=== PATIENT | male | born 1970 | race Caucasian/White ===

== ENCOUNTER 2020-01-29 15:50 | Inpatient (IN) | payer BC ==
[~2020-01-29] VITALS: Ht 198.1 cm; Wt 122.5 kg
[2020-01-29] VITALS (8 sets, daily range): BP systolic 104–138; BP diastolic 52–84
[2020-01-29] MEDS ORDERED: HEPARIN 25,000UTS/250ML PREMIX 250 ML IV PRN (16:30)
[2020-01-29] MEDS ORDERED: MORPHINE SULFATE 2 MG/ML VIAL. IV PRN (16:30)
[2020-01-29] MEDS ORDERED: DEXTROSE 50% 25 GM / 50ML DISP.SYRIN. IV PRN (16:30)
[2020-01-29] MEDS ORDERED: ACETAMINOPHEN 325 MG TABLET. PO PRN (16:30)
[2020-01-29] MEDS ORDERED: MAGNESIUM HYDROXIDE 2,400 MG/30 ML ORAL.SUSP. PO PRN (16:30)
[2020-01-29] MEDS ORDERED: BISACODYL 10 MG SUPP.RECT. PR PRN (16:30)
[2020-01-29] MEDS ORDERED: ONDANSETRON PF 4 MG/2 ML VIAL. IVP PRN (16:30)
[2020-01-29] MEDS ORDERED: HEPARIN for IV BOLUS 10,000 UNIT/10 ML VIAL. IV PRN (16:30)
--- NOTE | 2020-01-29 16:33 | PDOC1 ---
History and Physical Date of Admission Date of Admission DATE: 01/29/20 TIME: 16:33 Identification/Chief Complaint Chief Complaint Chest pain Source Source: Patient History of Present Illness History of Present Illness Mr Novak is a 49-year-old male w/ PMHX DM2 with neuropathy, cervical spinal stenosis and chronic lower back pain who presents to the emergency room at [facility] c/o substernal chest pain that is been intermittent since yesterday evening. He states he also has had intermittent shortness of breath and a dry hacking cough. He states it feels like a small child walking on his chest. He states that this all came on yesterday evening and he got very tired. He laid down and slept for 20 hours. When he woke up he still felt bad so he came to the emergency room. He is not had any known fevers. He is unsure if he has had any sick contacts. Notes his father had similar symptoms prior to an [place]. Labs with WBC 9.4, Hb 15.9, platelets 303, NA 134, K 4.1, BUN 10, Cr 1.1, Glucose 430, CRP 109, BNP 3083 Troponin of 25. CXR no acute findings EKG sinus tachy with TWI in I, AVL, and left anterior fascicular block noted, no ST segment changes Transferred to [facility] ICU, was tested for COVID 19 as well. His symptoms have not significantly improved since arrival, started on heparin GTT. Past Medical History Endocrine: Diabetes Past Surgical History Past Surgical History Carpal tunnel bilaterally, cubital tunnel bilaterally Family History Family History: Coronary Artery Disease Social History Smoke: # pack years (Chewing tobacco for 30 years) ALCOHOL: rare Drugs: None Allergies Allergies: Coded Allergies: No Known Drug Allergies (Unverified , 01/29/20) ROS General: YES: Fatigue, Malaise; No: Chills, Night Sweats, Appetite, Other PSYCHOLOGICAL ROS: YES: Anxiety; No: Behavioral Disorder, Concentration difficultie, Decreased libido, Depression, Disorientation, Hallucinations, Hostility, Irritablity, Memory difficulties, Mood Swings, Obsessive thoughts, Physical abuse, Sexual abuse, Sleep disturbances, Suicidal ideation, Other Eyes: No Blurry vision, No Decreased vision, No Double vision, No Dry eyes, No Excessive tearing, No Eye Pain, No Itchy Eyes, No Loss of vision, No Photophobia, No Scotomata, No Uses contacts, No Uses glasses, No Other HEENT: No: Heacaches, Visual Changes, Hearing change, Nasal congestion, Nasal discharge, Oral lesions, Sinus pain, Sore Throat, Epistaxis, Sneezing, Snoring, Tinnitus, Vertigo, Vocal changes, Other ALLERGY AND IMMUNOLOGY: No: Hives, Insect Bite Sensitivity, Itchy/Watery Eyes, Nasal Congestion, Post Nasal Drip, Seasonal Allergies, Other Hematological and Lymphatic: No: Bleeding Problems, Blood Clots, Blood Transfusions, Brusing, Night Sweats, Pallor, Swollen Lymph Nodes, Other ENDOCRINE: No: Breast Changes, Galactorrhea, Hair Pattern Changes, Hot Flashes, Malaise/lethargy, Mood Swings, Palpitations, Polydipsia/polyuria, Skin Changes, Temperature Intolerance, Unexpected Weight Changes, Other Breast: No New/Changing Breast Lumps, No Nipple changes, No Nipple discharge, No Other Respiratory: YES: Shortness of breath, SOB with excertion; No: Cough, Hemoptysis, Orthopnea, Pleuritic Pain, Sputum Changes, Stridor, Tachypnea, Wheezing, Other Cardiovascular: yes Chest Pain; No Palpitations, No Orthopnea, No Paroxysmal Noc. Dyspnea, No Edema, No Lt Headedness, No Other Gastrointestinal: Yes Nausea; No Vomiting, No Abdominal Pain, No Diarrhea, No Constipation, No Melena, No Hematochezia, No Other Genitourinary: No Dysuria, No Frequency, No Incontinence, No Hematuria, No Retention, No Discharge, No Urgency, No Pain, No Flank Pain, No Other, No , No , No , No , No , No , No Musculoskeletal: No Gait Disturbance, No Joint Pain, No Joint Stiffness, No Joint Swelling, No Muscle Pain, No Muscular Weakness, No Pain In:, No Swelling In:, No Other Neurological: No Behavorial Changes, No Bowel/Bladder ControlChng, No Confusion, No Dizziness, No Gait Disturbance, No Headaches, No Impaired Coord/balance, No Memory Loss, No Numbness/Tingling, No Seizures, No Speech Problems, No Tremors, No Visual Changes, No Weakness, No Other Skin: No Dry Skin, No Eczema, No Hair Changes, No Lumps, No Mole Changes, No Mottling, No Nail Changes, No Pruritus, No Rash, No Skin Lesion Changes, No Other, No Acne Physical Exam General: Alert, Oriented X3, Cooperative, moderate distress HEENT: Atraumatic, PERRLA, EOMI, Mucous membr. moist/pink Lungs: Clear to auscultation, Normal air movement Heart: S1S2, RRR, no thrills, no rubs, no gallops, no murmurs Abdomen: Normal bowel sounds, Soft, No tenderness, No hepatosplenomegaly, No masses Rectal Exam: not examined Extremities: No clubbing, No cyanosis, No edema, Normal pulses, No tenderness/swelling Skin: No rashes, No breakdown, No significant lesion Neuro: Normal gait, Normal speech, Strength at 5/5 X4 ext, Normal tone, Sensation intact, Cranial nerves 3-12 NL, Reflexes 2+ Psych/Mental Status: Mental status NL, Mood NL VTE Prophylaxis Ordered VTE Prophylaxis Devices: No VTE Pharmacological Prophylaxi: Yes Assessment/Plan Assessment/Plan A/P: NSTEMI (non-ST elevated myocardial infarction) - heparin GTT, trend troponins, NTG, ASA, consult cardiology. Likely CAD vs myocarditis Shortness of breath - likely cardiac related. no pulmonary history. F/u COVID 19 test results DM2 - will cont insulin regimen basal bolus plus Cervical spinal stenosis - stable, has outpatient plans for eventual surgery Chronic lower back pain - LESI planned in february - Cardiac diet PPX - Heparin GTT FULL CODE Dispo - ICU for NSTEMI CC time 37 minutes Justifications for Admission Other Justification DEE JACKSON MD Jan 29, 2020 16:33
[2020-01-29] MEDS ORDERED: INSU100V6 SQ (16:50)
[2020-01-29] MEDS ORDERED: GABA600T7 PO (16:50)
[2020-01-29] MEDS ORDERED: CYCL5TAB PO (16:50)
[2020-01-29] MEDS ORDERED: INSU100I13 SQ (16:50)
[2020-01-29] MEDS: INSULIN LISPRO 300 UNITS/3 ML VIAL. SQ SCH ×2 (17:00→18:03)
[2020-01-29] MEDS: DOCUSATE SODIUM 100 MG CAPSULE. PO SCH (20:55)
[2020-01-30] VITALS (16 sets, daily range): BP systolic 92–136; BP diastolic 61–86
[2020-01-30] MEDS: ZOLPIDEM 5 MG TABLET. PO PRN ×2 (00:41→20:38)
[2020-01-30] MEDS ORDERED: HEPARIN for IV BOLUS 10,000 UNIT/10 ML VIAL. IV PRN (01:45)
[2020-01-30] MEDS ORDERED: HEPARIN 25,000UTS/250ML PREMIX 250 ML IV PRN (02:00)
[2020-01-30 07:25] LABS: BASO % 0 % (0-3); EOS % 0 % (0-3); HEMATOCRIT 43.9 % (39.0-53.0); HEMOGLOBIN 14.9 g/dL (13.0-17.5); LYMPH # 1.9 x10^3/uL (1.0-4.8); LYMPH % 24 % (24-48); MEAN CORPUSCULAR HEMOGLOBIN 30 pg (25-35); MEAN CORPUSCULAR HGB CONC 34 g/dL (31-37); MEAN CORPUSCULAR VOLUME 87 fL (79-100); MONO # 0.6 x10^3/uL (0.0-1.1); MONO % 8 % (0-9); NEUT # 5.5 x10^3/uL (1.8-7.7); NEUT % 68 % (31-73); PLATELET COUNT 262 x10^3/uL (140-400); RED BLOOD COUNT 5.04 x10^6/uL (4.30-5.70); RED CELL DISTRIBUTION WIDTH 13.7 % (11.5-14.5); WHITE BLOOD COUNT 8.1 x10^3/uL (4.0-11.0)
[2020-01-30 07:44] LABS: CALCIUM 8.6 mg/dL (8.5-10.1); GFR 78.8; POTASSIUM 3.8 mmol/L (3.5-5.1)
[2020-01-30] MEDS: INSULIN LISPRO 300 UNITS/3 ML VIAL. SQ SCH ×3 (08:00→17:56)
[2020-01-30] MEDS ORDERED: IODIXANOL 320 MG/ML 100 ML VIAL. ONE ×3 (08:18→10:19)
[2020-01-30] MEDS ORDERED: LIDOCAINE 1% Multi-Dose 20 ML VIAL. ONE (08:18)
[2020-01-30] MEDS ORDERED: MIDAZOLAM HCL/PF 5 MG/5 ML VIAL. ONE (08:24)
[2020-01-30] MEDS ORDERED: fentaNYL PF VIAL 100 MCG/2 ML VIAL ONE (08:24)
[2020-01-30] MEDS ORDERED: ANTI-COAG MONITOR BY PHARMACY. MC PRN (08:30)
[2020-01-30] MEDS ORDERED: LIDOCAINE 1% Multi-Dose 20 ML VIAL. INJ ONE (08:45)
[2020-01-30] MEDS ORDERED: MIDAZOLAM HCL/PF 5 MG/5 ML VIAL. IV ONE (08:45)
[2020-01-30] MEDS ORDERED: fentaNYL PF VIAL 100 MCG/2 ML VIAL IV ONE (08:45)
[2020-01-30] MEDS ORDERED: IODIXANOL 320 MG/ML 100 ML VIAL. IART ONE (08:45)
--- NOTE | 2020-01-30 08:45 | PDOC ---
[employer] PROGRESS NOTE Date of Service DOS: DATE: 01/30/20 TIME: 08:44 Chief Complaint Chief Complaint A/P: NSTEMI (non-ST elevated myocardial infarction) - heparin GTT, trend troponins, NTG, ASA, consult cardiology. Likely CAD vs myocarditis Shortness of breath - likely cardiac related. no pulmonary history. F/u COVID 19 test results DM2 - will cont insulin regimen basal bolus plus Cervical spinal stenosis - stable, has outpatient plans for eventual surgery Chronic lower back pain - LESI planned in february FEN - Cardiac diet PPX - Heparin GTT FULL CODE Dispo - ICU for NSTEMI History of Present Illness History of Present Illness Mr Novak is a 49-year-old male w/ PMHX DM2 with neuropathy, cervical spinal stenosis and chronic lower back pain who presents to the emergency room at [facility] c/o substernal chest pain that is been intermittent since yesterday evening. He states he also has had intermittent shortness of breath and a dry hacking cough. He states it feels like a small child walking on his chest. He states that this all came on yesterday evening and he got very tired. He laid down and slept for 20 hours. When he woke up he still felt bad so he came to the emergency room. He is not had any known fevers. He is unsure if he has had any sick contacts. Notes his father had similar symptoms prior to an [place]. Labs with WBC 9.4, Hb 15.9, platelets 303, NA 134, K 4.1, BUN 10, Cr 1.1, Gluc ose 430, CRP 109, BNP 3083 Troponin of 25. CXR no acute findings EKG sinus tachy with TWI in I, AVL, and left anterior fascicular block noted, no ST segment changes Transferred to [facility] ICU, was tested for COVID 19 as well. His symptoms have not significantly improved since arrival, started on heparin GTT. Troponin still 16. to laboratory chief today. NPO. Vitals/I&O Vitals/I&O: Vital Signs Date Time Temp Pulse Resp B/P (MAP) Pulse Ox O2 Delivery O2 Flow Rate FiO2 01/30/20 07:00 95 16 109/75 (86) 98 Room Air 01/30/20 04:00 99.0 99.0 I & O 01/29/20 01/29/20 01/30/20 15:00 23:00 07:00 Intake Total 600 ml Output Total 200 ml 150 ml Balance 400 ml -150 ml Physical Exam General: Alert, Oriented X3, Cooperative, moderate distress Abdomen: Normal bowel sounds, Soft, No tenderness, No hepatosplenomegaly, No masses Extremities: No clubbing, No cyanosis, No edema, Normal pulses, No tenderness/swelling Skin: No rashes, No breakdown, No significant lesion Labs Labs: Laboratory Tests Test 01/29/20 17:42 01/29/20 17:50 01/29/20 19:17 01/30/20 00:30 Glucose (Fingerstick) 275 mg/dL (70-99) SARS-CoV-2 Antigen (Rapid) Negative (NEGATIVE) Troponin I Quantitative 18.699 ng/mL (0.000-0.055) 16.751 ng/mL (0.000-0.055) Heparin Anti-Xa Act, Unfractionated < 0.10 IU/mL (0.30-0.70) Test 01/30/20 07:10 White Blood Count 8.1 x10^3/uL (4.0-11.0) Red Blood Count 5.04 x10^6/uL (4.30-5.70) Hemoglobin 14.9 g/dL (13.0-17.5) Hematocrit 43.9 % (39.0-53.0) Mean Corpuscular Volume 87 fL (79-100) Mean Corpuscular Hemoglobin 30 pg (25-35) Mean Corpuscular Hemoglobin Concent 34 g/dL (31-37) Red Cell Distribution Width 13.7 % (11.5-14.5) Platelet Count 262 x10^3/uL (140-400) Neutrophils (%) (Auto) 68 % (31-73) Lymphocytes (%) (Auto) 24 % (24-48) Monocytes (%) (Auto) 8 % (0-9) Eosinophils (%) (Auto) 0 % (0-3) Basophils (%) (Auto) 0 % (0-3) Neutrophils # (Auto) 5.5 x10^3/uL (1.8-7.7) Lymphocytes # (Auto) 1.9 x10^3/uL (1.0-4.8) Monocytes # (Auto) 0.6 x10^3/uL (0.0-1.1) Eosinophils # (Auto) 0.0 x10^3/uL (0.0-0.7) Basophils # (Auto) 0.0 x10^3/uL (0.0-0.2) Heparin Anti-Xa Act, Unfractionated < 0.10 IU/mL (0.30-0.70) Sodium Level 134 mmol/L (136-145) Potassium Level 3.8 mmol/L (3.5-5.1) Chloride Level 101 mmol/L (98-107) Carbon Dioxide Level 24 mmol/L (21-32) Anion Gap 9 (6-14) Blood Urea Nitrogen 12 mg/dL (8-26) Creatinine 1.0 mg/dL (0.7-1.3) Estimated GFR (Cockcroft-Gault) 78.8 Glucose Level 303 mg/dL (70-99) Calcium Level 8.6 mg/dL (8.5-10.1) Comment Review of Relevant I have reviewed the following items eri (where applicable) has been applied. Medications: Current Medications Medications (Trade) Dose Ordered Sig/Chandrakant Route PRN Reason Start Time Stop Time Status Last Admin Dose Admin Zolpidem Tartrate (Ambien) 5 mg PRN QHS PRN PO INSOMNIA, MAY REPEAT IN 1HR 01/29/20 16:30 01/30/20 00:41 Docusate Sodium (Colace) 100 mg BID PO 01/29/20 21:00 01/29/20 20:55 Insulin Human Lispro (HumaLOG) 0-7 UNITS TIDWMEALS SQ 01/29/20 17:00 01/29/20 18:03 Heparin Sodium/ Dextrose 250 ml @ 0 mls/hr CONT PRN IV PER PROTOCOL 01/29/20 16:30 01/30/20 01:51 DC 01/29/20 18:04 Heparin Sodium (Porcine) (Heparin Sodium) 3,050 unit PRN Q6HRS PRN IV FOR UFH LEVEL LESS THAN 0.2 01/30/20 01:45 01/30/20 01:54 Justifications for Admission Other Justification DEE JACKSON MD Jan 30, 2020 08:45
[2020-01-30 08:53] LABS: ALBUMIN 2.6 g/dL (3.4-5.0); DIRECT BILIRUBIN 0.1 mg/dL (0.0-0.2); TOTAL BILIRUBIN 0.5 mg/dL (0.2-1.0)
[2020-01-30 08:54] LABS: CHOLESTEROL/HDL RATIO 4.4
--- NOTE | 2020-01-30 08:57 | PDOC2 ---
DAPHNE IVERSON COMPUTER AIDED DRAFTER 01/30/20 0857: CARDIAC CONSULT DATE OF CONSULT Date of Consult DATE: 01/30/20 TIME: 08:36 REASON FOR CONSULT Reason for Consult: NSTEMI REFERRING PHYSICIAN Referring Physician: Amrita SOURCE Source: Chart review, Patient HISTORY OF PRESENT ILLNESS HISTORY OF PRESENT ILLNESS This is a pleasant 49 yo male admitted for complains of chest pain. Reports he started having chest pressure yesterday with SOA and also feeling tired. No fever or cough. In the last week he has been fatigued. Also having thigh and chest cramps. No JEFFREY, jaw tightness arm heaviness and no indigestion or nausea. No recent falls injury or MVA. No hx of CAD, VTE or any arrhythmias. No HTN/HLP meds and no ASA but takes insulin for DM. He does have significant CAD family hx with his father and uncles and aunt from father's side. PAST MEDICAL HISTORY Cardiovascular: Hyperlipidemia Pulmonary: No pertinent hx CENTRAL NERVOUS SYSTEM: Other (No pertinent history) GI: No pertinent hx Heme/Onc: No pertinent hx Hepatobiliary: No pertinent hx Psych: No pertinent hx Musculoskeletal: low back pain (Lumbar HNP), Osteoarthritis Rheumatologic: No pertinent hx Infectious disease: No pertinent hx ENT: No pertinent hx Renal/: No pertinent hx Endocrine: Diabetes Dermatology: No pertinent hx PAST SURGICAL HISTORY Past Surgical History CTS bilateral repair, bilateral ulnar entrapment repair, right RTC repair x3 , 2 left knee arthroscopy, left lung PTX spontaneouis due to wt lifting, tonsillectomy and right hand debridement from infection FAMILY HISTORY Family History: Coronary Artery Disease SOCIAL HISTORY Social History 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 Smoke: No (chews tobacco) ALCOHOL: none Drugs: None Lives: with Family (spouse) CURRENT MEDICATIONS CURRENT MEDICATIONS Current Medications Medications (Trade) Dose Ordered Sig/Chandrakant Route PRN Reason Start Time Stop Time Status Last Admin Dose Admin Zolpidem Tartrate (Ambien) 5 mg PRN QHS PRN PO INSOMNIA, MAY REPEAT IN 1HR 01/29/20 16:30 01/30/20 00:41 Docusate Sodium (Colace) 100 mg BID PO 01/29/20 21:00 01/29/20 20:55 Insulin Human Lispro (HumaLOG) 0-7 UNITS TIDWMEALS SQ 01/29/20 17:00 01/29/20 18:03 Heparin Sodium/ Dextrose 250 ml @ 0 mls/hr CONT PRN IV PER PROTOCOL 01/29/20 16:30 01/30/20 01:51 DC 01/29/20 18:04 Heparin Sodium (Porcine) (Heparin Sodium) 3,050 unit PRN Q6HRS PRN IV FOR UFH LEVEL LESS THAN 0.2 01/30/20 01:45 01/30/20 01:54 ALLERGIES ALLERGIES: Coded Allergies: No Known Drug Allergies (Unverified , 01/29/20) ROS Review of System 14 point ROS evaluated with pertinent positives noted per HPI PHYSICAL EXAM General: Alert, Oriented X3, Cooperative, No acute distress HEENT: Atraumatic, Mucous membr. moist/pink Lungs: Clear to auscultation Heart: Regular rate (SR) Abdomen: Soft, No tenderness Extremities: No cyanosis, No edema Skin: No breakdown, No significant lesion Neuro: Normal speech, Sensation intact Psych/Mental Status: Mental status NL, Mood NL MUSCULOSKELETAL: Osteoarthritic changes both hands VITALS/I&O VITALS/I&O: Vital Signs Date Time Temp Pulse Resp B/P (MAP) Pulse Ox O2 Delivery O2 Flow Rate FiO2 01/30/20 07:00 95 16 109/75 (86) 98 Room Air 01/30/20 04:00 99.0 99.0 I & O 01/29/20 01/29/20 01/30/20 15:00 23:00 07:00 Intake Total 600 ml Output Total 200 ml 150 ml Balance 400 ml -150 ml LABS Lab: Laboratory Tests Test 01/29/20 17:42 01/29/20 17:50 01/29/20 19:17 01/30/20 00:30 Glucose (Fingerstick) 275 mg/dL (70-99) H SARS-CoV-2 Antigen (Rapid) Negative (NEGATIVE) Troponin I Quantitative 18.699 ng/mL (0.000-0.055) 16.751 ng/mL (0.000-0.055) Heparin Anti-Xa Act, Unfractionated < 0.10 IU/mL (0.30-0.70) L Test 01/30/20 07:10 White Blood Count 8.1 x10^3/uL (4.0-11.0) Red Blood Count 5.04 x10^6/uL (4.30-5.70) Hemoglobin 14.9 g/dL (13.0-17.5) Hematocrit 43.9 % (39.0-53.0) Mean Corpuscular Volume 87 fL (79-100) Mean Corpuscular Hemoglobin 30 pg (25-35) Mean Corpuscular Hemoglobin Concent 34 g/dL (31-37) Red Cell Distribution Width 13.7 % (11.5-14.5) Platelet Count 262 x10^3/uL (140-400) Neutrophils (%) (Auto) 68 % (31-73) Lymphocytes (%) (Auto) 24 % (24-48) Monocytes (%) (Auto) 8 % (0-9) Eosinophils (%) (Auto) 0 % (0-3) Basophils (%) (Auto) 0 % (0-3) Neutrophils # (Auto) 5.5 x10^3/uL (1.8-7.7) Lymphocytes # (Auto) 1.9 x10^3/uL (1.0-4.8) Monocytes # (Auto) 0.6 x10^3/uL (0.0-1.1) Eosinophils # (Auto) 0.0 x10^3/uL (0.0-0.7) Basophils # (Auto) 0.0 x10^3/uL (0.0-0.2) Heparin Anti-Xa Act, Unfractionated < 0.10 IU/mL (0.30-0.70) L Sodium Level 134 mmol/L (136-145) L Potassium Level 3.8 mmol/L (3.5-5.1) Chloride Level 101 mmol/L (98-107) Carbon Dioxide Level 24 mmol/L (21-32) Anion Gap 9 (6-14) Blood Urea Nitrogen 12 mg/dL (8-26) Creatinine 1.0 mg/dL (0.7-1.3) Estimated GFR (Cockcroft-Gault) 78.8 Glucose Level 303 mg/dL (70-99) H Calcium Level 8.6 mg/dL (8.5-10.1) Laboratory Tests 01/30/20 07:10 Laboratory Tests 01/30/20 07:10 ASSESSMENT/PLAN ASSESSMENT/PLAN 1. NSTEMI: ACS 2. DLP 3. DM2: insulin dependent 4. Obesity 5. Strong family hx of CAD 6. Chews tobacco Recommendations 1. LHC today and otential PCI 2. TTE, TSH, A1C and lipids 3. Secondary prevention measures post LHC 4. ASA, heparin drip ongoing. NEHEMIAH SUN MD 01/30/20 1403: CARDIAC CONSULT ASSESSMENT/PLAN ASSESSMENT/PLAN Patient seen and examined. Agree with PIZZA COOK's assessment and plan. Patient with non-STEMI. Rapid COVID test negative. Continue heparin infusion per protocol and proceed with cardiac catheterization and possible angioplasty today. Risks and benefits were explained and he is agreeable. Check 2D echo to assess LV systolic function. Consider Jardiance for diabetes. Thank you for your consultation. DAPHNE IVERSON APRN Jan 30, 2020 08:57 NEHEMIAH SUN MD Jan 30, 2020 14:03
[2020-01-30] MEDS: INSULIN GLARGINE SYRINGE. SQ SCH ×2 (09:00→20:43)
[2020-01-30] MEDS: DOCUSATE SODIUM 100 MG CAPSULE. PO SCH ×2 (09:00→20:38)
--- NOTE | 2020-01-30 09:20 | PDOC ---
MODERATE SEDATION ASSESSMENT RISKS/ALTERNATIVES Risks/Alternatives Risks and alternatives of this type of sedation and procedure discussed with: RISK/ALTERNATIVES: Patient H & P ON CHART H & P H & P on chart and reviewed for co-morbid conditions and appropriate labs. H&P ON CHART: Yes STATUS PREG STATUS ASSESSED: N/A MEDS/ALLERGIES REVIEWED Meds/Allergies Reviewed Medications and Allergies including time and route of recently administered narcotics and sedatives. MEDS/ALLERGIES REVIEWED: Yes ASA RATING ASA RATING: III AIRWAY ASSESSMENT Airway Assessment Airway patency, oral function limitations, presence of caps, crowns, dentures, partials, and ability to extend neck assessed. AIRWAY ASSESSMENT: Yes MALLAMPATI SCORE MALLAMPATI SCORE: II PRE-SEDATION ASSESSMENT PRE-SEDATION ASSESSMENT: Yes NEHEMIAH SUN MD Jan 30, 2020 09:20
[2020-01-30] MEDS ORDERED: BIVALIRUDIN 250 MG VIAL. IV ONE ×4 (09:35→10:15)
[2020-01-30] MEDS ORDERED: TICAGRELOR 90 MG TABLET. ONE (10:20)
[2020-01-30] MEDS ORDERED: TICAGRELOR 90 MG TABLET. PO ONE (10:30)
[2020-01-30] MEDS: IV 1/2 NORMAL SALINE 1,000 ML IV SCH ×2 (10:56→20:56)
[2020-01-30] MEDS ORDERED: ASPIRIN CHEWABLE 81 MG TABLET. PO ONE (11:00)
[2020-01-30] MEDS ORDERED: ACETAMINOPHEN 325 MG TABLET. PO PRN (11:00)
[2020-01-30] MEDS ORDERED: NITROGLYCERIN SUBLINGUAL 0.4 MG BOTTLE OF 25. SL PRN (11:00)
--- NOTE | 2020-01-30 11:34 | CARD ---
MR#: [id number] Date of Study: 01/30/2020 Ordering Physician: NEHEMIAH SUN, Referring Physician: NEHEMIAH SUN Tech: FREDRICK BREEN RTR APPROVED REPORT Technologist: FREDRICK BREEN RTR Nurse: Lian Gross R.N. Procedure(s) performed: 1. Left heart catheterization abd selective coronary angiography 2. Successful PCI/drug-eluting stents placement to left anterior descending and right coronary arter ies 3. Instant wave free ratio (IFR) measurement left circumflex artery stenosis MODERATE SEDATION TIME: 87 minutes FLUORO TIME: 21.5 MIN DOSE: 203 GYCM2 CONTRAST: 263CC VISI INDICATION The indication(s) include : non-STEMI . [facility] Clinical Frailty Scale [facility] Clinical Frailty Scale: Managing Well Heart Failure Heart Failure: No PROCEDURE NARRATIVE After explaining the risks, benefits and alternative options, informed consent was obtained from dimple ent. Patient was brought to the cardiac Hydrator and his right groin was prepped and draped in the u sual fashion. 10 cc of 2% lidocaine was infiltrated into the skin and subcutaneous tissues for local anesthesia. Arterial access was obtained in the right common femoral artery and a 6 [place] sheath w as inserted. 6 [place] JL4 and 6 [place] JR4 catheters were used to perform selective angiography of t he left and right coronary arteries. LVEDP and transaortic gradients were measured. Left ventriculo graphy was not performed due to contrast load used for intervention. Since patient was found to have angiographically borderline significant stenosis involving the proximal segment of the obtuse margin al branch of left circumflex artery, a decision was made to perform physiologic assessment using inst ant wave free ratio IIFR) measurement. The stenosis was crossed with a [employer] Verrata pressure wire and IFR measurement was made there was physiologically insignificant at 0.95. The following finding s were noted: FINDINGS 1. Hemodynamics: Left ventricular end-diastolic pressure 16 mmHg. No pullback gradient across the a ortic valve. 2. Coronary angiography: a. The left main coronary artery arose from the left sinus of Valsalva, gave rise to the left anteri or descending and left circumflex arteries and did not show any significant stenosis. b. The left anterior descending artery showed 80% stenosis in the proximal segment, a long 90% steno sis in the midsegment. There was severe diffuse disease noted in the distal/apical segment. The fir st diagonal branch showed chronic total occlusion proximally. c. The left circumflex artery showed 60% stenosis involving the proximal segment of an obtuse margin al branch. This was physiologically insignificant based on IFR measurement of 0.95. There is modera te to severe diffuse disease distally. d. The right coronary artery was a large and dominant vessel arising from the right sinus of Valsalv a that showed 70% stenosis in the proximal segment and 90% stenosis in the midsegment. INTERVENTION Patient had three-vessel coronary disease but he did not have any good distal targets for coronary ar pino bypass surgery. Hence we decided to intervene percutaneously. The left main coronary artery wa s engaged with a 6 [place] XB 3.5 guide catheter and the stenosis the proximal and mid segments of the left anterior descending artery were crossed with a 0.014 inch [employer] pro-water guidewire. This was predilated with a 3.0 x 15 mm Euphora balloon. The mid segment stenosis was treated with a 3.0 x 34 mm resolute [place] drug-eluting stent. The proximal segment stenosis was treated with a 3.5 x 22 mm re solute [place] drug-eluting stent with small area of overlap with the stent in the midsegment. Follow-u p angiography showed resolution of the stenosis to 0% with VIVIANA-3 distal flow. Subsequently, the right coronary artery was engaged with a 6 [place] JR4 guide catheter and the stenos is in the proximal and mid segments were crossed with a 0.014 inch [employer] pro-water guidewire. These were predilated with a 3.0 x 15 mm Euphora balloon. Initial attempts to advance stent across the pro ximal segment were unsuccessful due to tortuosity. A 6 [place] guide liner inner catheter was then ad vanced into the proximal segment for better backup support. Subsequently, the mid segment stenosis w as treated with a 3.0 x 18 mm resolute [place] in the proximal segment stenosis was treated with another 3.0 x 18 mm resolute [place] drug-eluting stents. Follow-up angiography showed resolution of both the lesions to 0% with VIVIANA-3 distal flow. Patient tolerated procedure well. Hemostasis was achieved us ing Angio-Seal. There were no immediate complications VIVIANA Flow VIVIANA Flow (Pre-Intervention): VIVIANA-3 VIVIANA Flow (Post-Intervention): VIVIANA-3 VIVIANA Flow VIVIANA Flow (Pre-Intervention): VIVIANA-3 VIVIANA Flow (Post-Intervention): VIVIANA-3 VIVIANA Flow VIVIANA Flow (Pre-Intervention): VIVIANA-3 VIVIANA Flow (Post-Intervention): VIVIANA-3 VIVIANA Flow VIVIANA Flow (Pre-Intervention): VIVIANA-3 VIVIANA Flow (Post-Intervention): VIVIANA-3 Conclusion 1. Three-vessel coronary artery disease with poor distal targets for coronary artery bypass surgery. 2. Successful PCI/drug-eluting stents placement to the left anterior descending and right coronary a rteries. 3. 60% left circumflex artery stenosis proven physiologically insignificant based on IFR measurement of 0.95. Recommendations 1. Aspirin 81 mg daily 2. Ticagrelor 90 mg twice daily 3. Cardiovascular risk factor modification 4. Cardiac rehabilitation referral Signed by : Nehemiah Sun, Electronically Approved : 01/30/2020 11:33:59
--- NOTE | 2020-01-30 13:26 | NUR ---
SW following. Discussed with RN, pt from home, room air, NPO, COVID-19 negative. RN advised no SW needs and anticipates discharge home possibly Sunday (02/01/2020). SW will continue to follow should any discharge needs arise.
--- NOTE | 2020-01-30 15:03 | CARD ---
MR#: [id number] Date of Study: 01/30/2020 Ordering Physician: DAPHNE IVERSON, Referring Physician: DAPHNE IVERSON Tech: Shalini Henning SINDHU APPROVED REPORT EXAM: Two-dimensional and M-mode echocardiogram with Doppler and color Doppler. Other Information Quality : Good INDICATION Non STEMI 2D DIMENSIONS RVDd3.0 (2.9-3.5cm)Left Atrium(2D)4.2 (1.6-4.0cm) IVSd1.7 (0.7-1.1cm)Aortic Root(2D)3.7 (2.0-3.7cm) LVDd4.9 (3.9-5.9cm)LVOT Diameter2.7 (1.8-2.4cm) PWd1.5 (0.7-1.1cm)LVDs3.5 (2.5-4.0cm) FS (%) 27.8 %SV61.0 ml LVEF(%)53.8 (>50%) Aortic Valve AoV Peak Alvin.87.2cm/sAoV VTI12.3cm AO Peak GR.3.0mmHgLVOT VTI 12.97cm AO Mean GR.2mmHg Mitral Valve MV E Wqudzsci32.0cm/sMV DECEL NEOV95sd MV A Ufovpbun02.5cm/sE/A Ratio0.4 TDI Lateral E' P. V3.80cm/sMedial E' P. V4.12cm/s E/Lateral E'8.9E/Medial E'8.3 Tricuspid Valve TR P. Pzuscjmf041ti/sRAP FULGLHZC9ghGi TR Peak Gr.19cxUjQRJQ91lwEx LEFT VENTRICLE The left ventricle is normal size. There is mild to moderate concentric left ventricular hypertrophy. Basal inferior wall hypokinesis. The Ejection Fraction is 45-50%. Transmitral Doppler flow pattern i s Grade I-abnormal relaxation pattern. RIGHT VENTRICLE The right ventricle is normal size. The right ventricular systolic function is normal. ATRIA The left atrium is mildly dilated. The right atrium size is normal. The interatrial septum is intact with no evidence for an atrial septal defect or patent foramen ovale as noted on 2-D or Doppler imagi ng. AORTIC VALVE The aortic valve is normal in structure and function. Doppler and Color Flow revealed no significant aortic regurgitation. There is no significant aortic valvular stenosis. MITRAL VALVE The mitral valve is normal in structure and function. There is no evidence of mitral valve prolapse. There is no mitral valve stenosis. Doppler and Color-flow revealed trace mitral regurgitation. TRICUSPID VALVE The tricuspid valve is normal in structure and function. Doppler and Color Flow revealed trace tricus pid regurgitation. The PA pressure was estimated at 22 mmHg. There is no tricuspid valve stenosis. PULMONIC VALVE The pulmonic valve is not well visualized. Doppler and Color Flow revealed no pulmonic valvular regur gitation. There is no pulmonic valvular stenosis. GREAT VESSELS The aortic root is normal in size. The ascending aorta is mildly dilated at 3.8 cm. The IVC was not v isualized. PERICARDIAL EFFUSION There is no evidence of significant pericardial effusion. Critical Notification Critical Value: No <Conclusion> Basal inferior wall hypokinesis. The Ejection Fraction is 45-50%. Transmitral Doppler flow pattern is Grade I-abnormal relaxation pattern. Trace mitral regurgitation. Trace tricuspid regurgitation. The PA pressure was estimated at 22 mmHg. There is no evidence of significant pericardial effusion. Signed by : Marcelo Ovalle, Electronically Approved : 01/30/2020 15:03:06
[2020-01-30] MEDS: METOPROLOL TART IMMED RELEASE 25 MG TABLET. PO SCH (20:38)
[2020-01-30] MEDS ORDERED: ATORVASTATIN CALCIUM 20 MG TABLET PO SCH (21:00)
[2020-01-31] VITALS: BP 118/77
[2020-01-31 03:09] LABS: HEMOGLOBIN A1C 13.3 % (4.8-5.6)
[2020-01-31 04:00] VITALS: BP 107/65
[2020-01-31] MEDS: IV 1/2 NORMAL SALINE 1,000 ML IV SCH (06:56)
--- NOTE | 2020-01-31 07:56 | PDOC ---
[employer] PROGRESS NOTE Date of Service DOS: DATE: 01/31/20 TIME: 07:54 Chief Complaint Chief Complaint A/P: NSTEMI (non-ST elevated myocardial infarction) - s/p cardiac cath 3 vessel CAD - PCI/drug-eluting stents placement to the left anterior descending and right coronary arteries. Shortness of breath - likely cardiac related DM2 - will cont insulin regimen basal bolus plus Cervical spinal stenosis - stable, has outpatient plans for eventual surgery Chronic lower back pain - LESI planned in february - Cardiac diet PPX - Heparin GTT FULL CODE Dispo - ICU for NSTEMI History of Present Illness History of Present Illness Mr Novak is a 49-year-old male w/ PMHX DM2 with neuropathy, cervical spinal stenosis and chronic lower back pain who presents to the emergency room at [facility] c/o substernal chest pain that is been intermittent since yesterday evening. He states he also has had intermittent shortness of breath and a dry hacking cough. He states it feels like a small child walking on his chest. He states that this all came on yesterday evening and he got very tired. He laid down and slept for 20 hours. When he woke up he still felt bad so he came to the emergency room. He is not had any known fevers. He is unsure if he has had any sick contacts. Notes his father had similar symptoms prior to an [place]. Labs with WBC 9.4, Hb 15.9, platelets 303, NA 134, K 4.1, BUN 10, Cr 1.1, Glucose 430, CRP 109, BNP 3083 Troponin of 25. CXR no acute findings EKG sinus tachy with TWI in I, AVL, and left anterior fascicular block noted, no ST segment changes Transferred to [facility] ICU, was tested for COVID 19 as well. 01/29: To cardiac cath: 1. Three-vessel coronary artery disease with poor distal targets for coronary artery bypass surgery. 2. Successful PCI/drug-eluting stents placement to the left anterior descending and right coronary arteries. 3. 60% left circumflex artery stenosis proven physiologically insignificant based on IFR measurement of 0.95. Echo with basal hypokinesis and EF 45-50% Feeling improved no shortness of breath or chest pain. Discussed need for intense diabetic control, sensation of smokeless tobacco. Diet and exercise emphasized. Discussed with bedside as well. Vitals/I&O Vitals/I&O: Vital Signs Date Time Temp Pulse Resp B/P (MAP) Pulse Ox O2 Delivery O2 Flow Rate FiO2 01/31/20 04:00 99.4 86 16 107/65 (79) 95 Room Air 99.4 01/31/20 00:00 I & O 01/30/20 01/30/20 01/31/20 14:59 22:59 06:59 Intake Total 100 ml 1200 ml Balance 100 ml 1200 ml Physical Exam General: Alert, Oriented X3, Cooperative, No acute distress Heart: Regular rate (SR) Abdomen: Soft, No tenderness Extremities: No cyanosis, No edema Skin: No breakdown, No significant lesion Labs Labs: Laboratory Tests Test 01/30/20 17:32 Glucose (Fingerstick) 261 mg/dL (70-99) Comment Review of Relevant I have reviewed the following items eri (where applicable) has been applied. Medications: Current Medications Medications (Trade) Dose Ordered Sig/Chandrakant Route PRN Reason Start Time Stop Time Status Last Admin Dose Admin Heparin Sodium/ Sodium Chloride (HEPARIN for ARTERIAL LINE FLUSH) 1,000 unit 1X ONCE IART 01/30/20 08:45 01/30/20 08:46 DC 01/30/20 08:45 Midazolam HCl (Versed) 5 mg 1X ONCE IV 01/30/20 08:45 01/30/20 08:46 DC 01/30/20 08:45 Fentanyl Citrate (Fentanyl 2ml Vial) 100 mcg 1X ONCE IV 01/30/20 08:45 01/30/20 08:46 DC 01/30/20 08:45 Iodixanol (Visipaque 320) 100 ml 1X ONCE IART 01/30/20 08:45 01/30/20 08:46 DC 01/30/20 08:45 Lidocaine HCl (Lidocaine 1% 20ml Vial) 20 ml 1X ONCE INJ 01/30/20 08:45 01/30/20 08:46 DC 01/30/20 08:45 Insulin Glargine (Lantus Syringe) 20 unit BID SQ 01/30/20 09:00 01/30/20 20:43 Bivalirudin (Angiomax) 250 mg 1X ONCE IV 01/30/20 10:15 01/30/20 10:18 DC 9/18/20 10:15 Bivalirudin (Angiomax) 250 mg 1X ONCE IV 01/30/20 10:15 01/30/20 10:18 DC 01/30/20 10:15 Ticagrelor (Brilinta) 180 mg 1X ONCE PO 01/30/20 10:30 01/30/20 10:31 DC 01/30/20 10:30 Aspirin (Aspirin Chewable) 81 mg 1X ONCE PO 01/30/20 11:00 01/30/20 11:01 DC 01/30/20 10:49 Metoprolol Tartrate (Lopressor) 12.5 mg BID PO 01/30/20 21:00 01/30/20 20:38 Atorvastatin Calcium (Lipitor) 40 mg QHS PO 01/30/20 21:00 01/30/20 20:38 Justifications for Admission Other Justification DEE JACKSON MD Jan 31, 2020 07:56
[2020-01-31 08:00] VITALS: BP 119/80
[2020-01-31] MEDS ORDERED: ASPIRIN ENTERIC COATED 81 MG TABLET.DR. PO SCH (08:00)
--- NOTE | 2020-01-31 08:15 | EKG ---
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
[2020-01-31] MEDS: DOCUSATE SODIUM 100 MG CAPSULE. PO SCH (08:20)
[2020-01-31] MEDS: METOPROLOL TART IMMED RELEASE 25 MG TABLET. PO SCH (08:21)
[2020-01-31] MEDS: INSULIN GLARGINE SYRINGE. SQ SCH (08:28)
[2020-01-31] MEDS: INSULIN LISPRO 300 UNITS/3 ML VIAL. SQ SCH ×2 (08:29→12:00)
[2020-01-31] MEDS ORDERED: TICAGRELOR 90 MG TABLET. PO SCH (09:00)
[2020-01-31 10:00] VITALS: BP 113/75
--- NOTE | 2020-01-31 10:33 | PDOC ---
PROGRESS NOTES Date of Service: DATE: 01/31/20 TIME: 10:33 Subjective Subjective Patient denied any chest pain or shortness of breath Objective Objective Vital Signs Date Time Temp Pulse Resp B/P (MAP) Pulse Ox O2 Delivery O2 Flow Rate FiO2 01/31/20 08:21 82 119/84 01/31/20 04:00 99.4 16 95 Room Air 99.4 01/31/20 00:00 Intake and Output 01/31/20 07:00 Intake Total 1300 ml Balance 1300 ml Intake Oral 1300 ml # Voids 5 Physical Exam Abdomen: Soft, No tenderness Heart: Regular rate (SR) Extremities: No cyanosis, No edema General: Alert, Oriented X3, Cooperative, No acute distress HEENT: Atraumatic, Mucous membr. moist/pink Lungs: Clear to auscultation MUSCULOSKELETAL: Osteoarthritic changes both hands Neuro: Normal speech, Sensation intact Psych/Mental Status: Mental status NL, Mood NL Skin: No breakdown, No significant lesion Assessment Assessment 1. NSTEMI/CAD: Cardiac catheterization showed three-vessel coronary disease. P atient underwent successful PCI/GABBI to LAD and RCA yesterday. Telemetry did not show any significant arrhythmias. He is currently stable and chest pain-free. Continue dual antiplatelet therapy. Will refer patient for cardiac rehabilitation. Follow-up with our office in 1 month. 2. DLP: Continue statin therapy 3. DM2: insulin dependent: Treat per primary team 4. Mild ischemic cardiomyopathy, EF 45 to 50%. Clinically well compensated. Comment Review of Relevant I have reviewed the following items eri (where applicable) has been applied. Labs Laboratory Tests Test 01/30/20 17:32 01/31/20 08:25 Glucose (Fingerstick) 261 mg/dL (70-99) 210 mg/dL (70-99) Medications Current Medications Acetaminophen (Tylenol) 650 mg PRN Q6HRS PRN PO MILD PAIN / TEMP > 100.3'F; Start 01/30/20 at 11:00 Aspirin (Aspirin Chewable) 81 mg 1X ONCE PO Last administered on 01/30/20at 10:49; Start 01/30/20 at 11:00; Stop 01/30/20 at 11:01; Status DC Aspirin (Ecotrin) 81 mg DAILYWBKFT PO Last administered on 01/31/20at 08:22; Start 01/31/20 at 08:00 Atorvastatin Calcium (Lipitor) 40 mg QHS PO Last administered on 01/30/20at 20:38; Start 01/30/20 at 21:00 Metoprolol Tartrate (Lopressor) 12.5 mg BID PO Last administered on 01/31/20at 08:21; Start 01/30/20 at 21:00 Nitroglycerin (Nitrostat) 0.4 mg PRN Q5MIN PRN SL CHEST PAIN; Start 01/30/20 at 11:00 Sodium Chloride 1,000 ml @ 100 mls/hr Q10H IV ; Start 01/30/20 at 10:56 Ticagrelor (Brilinta) 90 mg BID PO Last administered on 01/31/20at 08:22; Start 01/31/20 at 09:00 Vitals/I & O Vital Sign - Last 24 Hours 01/30/20 01/30/20 01/30/20 01/30/20 10:50 11:00 12:00 12:00 Temp 98.6 98.6 Pulse 87 95 92 Resp 18 16 16 B/P (MAP) 122/75 (91) 129/85 (100) Pulse Ox 97 98 98 O2 Delivery Nasal Cannula Room Air Room Air Room Air O2 Flow Rate 2.0 01/30/20 01/30/20 01/30/20 01/30/20 13:00 14:00 15:00 16:00 Pulse 86 88 90 Resp 16 16 16 B/P (MAP) 92/61 (71) 117/77 (90) 119/83 (95) Pulse Ox 97 97 97 O2 Delivery Room Air Room Air Room Air Room Air 01/30/20 01/30/20 01/31/20 01/31/20 20:00 20:38 00:00 04:00 Temp 99.3 99.1 99.4 99.3 99.1 99.4 Pulse 91 91 91 86 Resp 16 16 16 B/P (MAP) 132/78 (96) 132/78 118/77 (91) 107/65 (79) Pulse Ox 96 95 95 O2 Delivery Room Air Room Air Room Air O2 Flow Rate 01/31/20 08:21 Pulse 82 B/P (MAP) 119/84 Intake and Output 01/30/20 01/30/20 01/31/20 15:00 23:00 07:00 Intake Total 100 ml 1200 ml Balance 100 ml 1200 ml NEHEMIAH SUN MD Jan 31, 2020 10:33
[2020-01-31] MEDS ORDERED: ATOR20TA58 PO (11:21)
[2020-01-31] MEDS ORDERED: METF10007 PO (11:21)
[2020-01-31] MEDS ORDERED: LINA5TAB PO (11:21)
[2020-01-31] MEDS ORDERED: METO25TA4 PO (11:21)
[2020-01-31] MEDS ORDERED: EMPA25TA PO (11:21)
[2020-01-31] MEDS ORDERED: TICA90TA PO (11:21)
[2020-01-31] MEDS ORDERED: ASPI-886 PO (11:21)
--- NOTE | 2020-01-31 11:25 | PDOC3 ---
Discharge Summary Visit Information Date of Admission: Jan 29, 2020 Date of Discharge: Jan 31, 2020 Admitting Diagnosis: NSTEMI Final Diagnosis 3 vessel CAD Brief Hospital Course Allergies Allergies Coded Allergies Type Severity Reaction Last Updated Verified No Known Drug Allergies 01/29/20 No Vital Signs Vital Signs Date Time Temp Pulse Resp B/P (MAP) Pulse Ox O2 Delivery O2 Flow Rate FiO2 01/31/20 10:00 98.7 86 18 113/75 (88) 98 Room Air 98.7 01/31/20 00:00 Lab Results Laboratory Tests Test 01/29/20 17:42 01/29/20 17:50 01/29/20 18:15 01/29/20 19:17 Glucose (Fingerstick) 275 mg/dL (70-99) SARS-CoV-2 Antigen (Rapid) Negative (NEGATIVE) Coronavirus (PCR) Not detected (Not Detected) Troponin I Quantitative 18.699 ng/mL (0.000-0.055) Test 01/30/20 00:30 01/30/20 07:10 01/30/20 17:32 01/31/20 08:25 Heparin Anti-Xa Act, Unfractionated < 0.10 IU/mL (0.30-0.70) < 0.10 IU/mL (0.30-0.70) Troponin I Quantitative 16.751 ng/mL (0.000-0.055) White Blood Count 8.1 x10^3/uL (4.0-11.0) Red Blood Count 5.04 x10^6/uL (4.30-5.70) Hemoglobin 14.9 g/dL (13.0-17.5) Hematocrit 43.9 % (39.0-53.0) Mean Corpuscular Volume 87 fL (79-100) Mean Corpuscular Hemoglobin 30 pg (25-35) Mean Corpuscular Hemoglobin Concent 34 g/dL (31-37) Red Cell Distribution Width 13.7 % (11.5-14.5) Platelet Count 262 x10^3/uL (140-400) Neutrophils (%) (Auto) 68 % (31-73) Lymphocytes (%) (Auto) 24 % (24-48) Monocytes (%) (Auto) 8 % (0-9) Eosinophils (%) (Auto) 0 % (0-3) Basophils (%) (Auto) 0 % (0-3) Neutrophils # (Auto) 5.5 x10^3/uL (1.8-7.7) Lymphocytes # (Auto) 1.9 x10^3/uL (1.0-4.8) Monocytes # (Auto) 0.6 x10^3/uL (0.0-1.1) Eosinophils # (Auto) 0.0 x10^3/uL (0.0-0.7) Basophils # (Auto) 0.0 x10^3/uL (0.0-0.2) Sodium Level 134 mmol/L (136-145) Potassium Level 3.8 mmol/L (3.5-5.1) Chloride Level 101 mmol/L (98-107) Carbon Dioxide Level 24 mmol/L (21-32) Anion Gap 9 (6-14) Blood Urea Nitrogen 12 mg/dL (8-26) Creatinine 1.0 mg/dL (0.7-1.3) Estimated GFR (Cockcroft-Gault) 78.8 Glucose Level 303 mg/dL (70-99) Hemoglobin A1c 13.3 % (4.8-5.6) Calcium Level 8.6 mg/dL (8.5-10.1) Total Bilirubin 0.5 mg/dL (0.2-1.0) Direct Bilirubin 0.1 mg/dL (0.0-0.2) Aspartate Amino Transf (AST/SGOT) 48 U/L (15-37) Alanine Aminotransferase (ALT/SGPT) 31 U/L (16-63) Alkaline Phosphatase 72 U/L (46-116) Total Protein 6.0 g/dL (6.4-8.2) Albumin 2.6 g/dL (3.4-5.0) Triglycerides Level 123 mg/dL (0-150) Cholesterol Level 195 mg/dL (0-200) LDL Cholesterol, Calculated 126 mg/dL (0-100) VLDL Cholesterol, Calculated 25 mg/dL (0-40) Non-HDL Cholesterol Calculated 151 mg/dL (0-129) HDL Cholesterol 44 mg/dL (40-60) Cholesterol/HDL Ratio 4.4 Glucose (Fingerstick) 261 mg/dL (70-99) 210 mg/dL (70-99) Laboratory Tests Test 01/30/20 17:32 01/31/20 08:25 Glucose (Fingerstick) 261 mg/dL (70-99) 210 mg/dL (70-99) Brief Hospital Course Mr Novak is a 49-year-old male w/ PMHX DM2 with neuropathy, cervical spinal stenosis and chronic lower back pain who presents to the emergency room at [facility] c/o substernal chest pain that is been intermittent since yesterday evening. He states he also has had intermittent shortness of breath and a dry hacking cough. He states it feels like a small child walking on his chest. He states that this all came on yesterday evening and he got very tired. He laid down and slept for 20 hours. When he woke up he still felt bad so he came to the emergency room. He is not had any known fevers. He is unsure if he has had any sick contacts. Notes his father had similar symptoms prior to an [place]. Labs with WBC 9.4, Hb 15.9, platelets 303, NA 134, K 4.1, BUN 10, Cr 1.1, Glucose 430, CRP 109, BNP 3083 Troponin of 25. CXR no acute findings EKG sinus tachy with TWI in I, AVL, and left anterior fascicular block noted, no ST segment changes Transferred to [facility] ICU, was tested for COVID 19 as well. 01/29: To cardiac cath: 1. Three-vessel coronary artery disease with poor distal targets for coronary artery bypass surgery. 2. Successful PCI/drug-eluting stents placement to the left anterior descending and right coronary arteries. 3. 60% left circumflex artery stenosis proven physiologically insignificant based on IFR measurement of 0.95. Echo with basal hypokinesis and EF 45-50% Feeling improved no shortness of breath or chest pain. Discussed need for inten se diabetic control, sensation of smokeless tobacco. Diet and exercise emphasized. Discussed with bedside as well. Consults: Cardiology Problem list: NSTEMI (non-ST elevated myocardial infarction) - s/p cardiac cath 3 vessel CAD - PCI/drug-eluting stents placement to the left anterior descending and right coronary arteries. Shortness of breath - likely cardiac related DM2 - will cont insulin regimen basal bolus plus Cervical spinal stenosis - stable, has outpatient plans for eventual surgery Chronic lower back pain - LESI planned in february Greater than 30 minutes spent on d/c home with cardiac rehab. no heavy lifting for 14 days. Discharge Information Condition at Discharge: Improved Follow Up: Weeks (1) Disposition/Orders: D/C to Home Scheduled Aspirin (Aspirin Ec) 81 Mg Tablet.dr, 81 MG PO DAILYWBKFT for CAD for 90 Days, #90 Ref 3 Prescribed by: DEE JACKSON MD on 01/31/20 1121 Atorvastatin Calcium (Atorvastatin Calcium) 20 Mg Tablet, 40 MG PO QHS for CAD for 90 Days, #180 Ref 3 Prescribed by: DEE JACKSON MD on 01/31/20 1121 Empagliflozin (Jardiance) 25 Mg Tablet, 25 MG PO DAILY for DM2 for 90 Days, #90 Ref 3 Prescribed by: DEE JACKSON MD on 01/31/20 1121 Gabapentin (Gabapentin) 600 Mg Tablet, 600 MG PO TID for NEUROGENIC PAIN, (Reported) Entered as Reported by: SHAMAR MCFADDEN on 01/29/201649 Last Action: New Order on 01/29/201649 by SHAMAR MCFADDEN Insulin Glargine,Hum.rec.anlog (Lantus Solostar) 100 Unit/1 Ml Insuln.pen, 50 UNIT SQ BID for DM, #15 Ref 3 (Reported) Entered as Reported by: SHAMAR MCFADDEN on 01/29/201649 Last Action: Converted on 01/30/20 08 by DEE JACKSON MD Insulin Lispro (Humalog) 100 Unit/1 Ml Vial, 50 UNIT SQ TIDAC for DM, (Reported) Entered as Reported by: SHAMAR MCFADDEN on 01/29/201649 Last Action: New Order on 01/29/201649 by SHAMAR MCFADDEN Linagliptin (Tradjenta) 5 Mg Tablet, 5 MG PO DAILY for TYPE 2 DIABETES for 90 Days, #90 Ref 3 Prescribed by: DEE JACKSON MD on 01/31/20 1121 Metformin Hcl (Metformin Hcl) 1,000 Mg Tablet, 1,000 MG PO BIDWMEALS for DM2 for 90 Days, #180 Ref 3 Prescribed by: DEE JACKSON MD on 01/31/20 1121 Metoprolol Tartrate (Metoprolol Tartrate) 25 Mg Tablet, 12.5 MG PO BID for CAD for 90 Days, #90 Ref 3 Prescribed by: DEE JACKSON MD on 01/31/20 1121 Ticagrelor (Brilinta) 90 Mg Tablet, 90 MG PO BID for CAD for 90 Days, #180 Ref 3 Prescribed by: DEE JACKSON MD on 01/31/20 1121 Scheduled PRN Cyclobenzaprine Hcl (Cyclobenzaprine Hcl) 5 Mg Tablet, 1 TAB PO PRN PRN for MUSCLE SPASMS, #30 (Reported) Entered as Reported by: SHAMAR MCFADDEN on 01/29/201649 Last Action: New Order on 01/29/201649 by SHAMAR MCFADDEN Justicifation of Admission Dx: Justifications for Admission: Justification of Admission Dx: Yes Angina: Unstable Variant DEE JACSKON MD Jan 31, 2020 11:25
--- NOTE | 2020-01-31 12:12 | NUR ---
IV accidental removal from patient, intact, and bandage applied. This Rn gave education on diet, exercise, and discharge directions on medications and lifestyle techniques for improving quality of life and prevention methods. Script for work was given to patient and spouse. This Rn escorted pt and spouse to main entrance to private vehicle. Fair tolerance ambulating. All belongings with patient self care.
== END 2020-01-31 12:01 | disposition home or self-care (01) | DRG 247 ==
LOC: 1 WEST ICU 15:50
PROVIDERS: ADMIT Internal Medicine; ATTEND Internal Medicine
PROC: B2111ZZ Fluoroscopy of Multiple Coronary Arteries using Low Osmolar Contrast (ICD-10-PCS; principal; 2020-01-30)
PROC: 027135Z Dilation of Coronary Artery, Two Arteries with Two Drug-eluting Intraluminal Devices, Percutaneous Approach (ICD-10-PCS; 2020-01-30)
PROC: 4A023N7 Measurement of Cardiac Sampling and Pressure, Left Heart, Percutaneous Approach (ICD-10-PCS; 2020-01-30)
PROC: 4A033BC Measurement of Arterial Pressure, Coronary, Percutaneous Approach (ICD-10-PCS; 2020-01-30)
DX: I21.4 Non-ST elevation (NSTEMI) myocardial infarction (principal); E11.40 Type 2 diabetes mellitus with diabetic neuropathy, unspecified; E66.9 Obesity, unspecified; E78.5 Hyperlipidemia, unspecified; G89.29 Other chronic pain; I25.10 Atherosclerotic heart disease of native coronary artery without angina pectoris; I25.5 Ischemic cardiomyopathy; M48.02 Spinal stenosis, cervical region; Z20.828 Contact with and (suspected) exposure to other viral communicable diseases; F17.200 Nicotine dependence, unspecified, uncomplicated; M19.90 Unspecified osteoarthritis, unspecified site; I44.4 Left anterior fascicular block; Z68.31 Body mass index [BMI] 31.0-31.9, adult; Z79.4 Long term (current) use of insulin; Z82.49 Family history of ischemic heart disease and other diseases of the circulatory system; Z95.1 Presence of aortocoronary bypass graft
CPT/HCPCS: 92928; 93458; 93571; G0269; 36415; 80048; 80061; 80076; 82962; 83036; 84484; 85025; 85520; 87426; 93005; 93306; 99152; 99153; C1713; C1725; C1760; C1769; C1874; C1887; C1892; J0583; J1644; J1815; J2250; J3010; J3490; Q9967; C1771; G0378; U0003-CS